=== PATIENT | male | born 1945 | race Caucasian/White ===

== ENCOUNTER 2017-10-01 10:20 | Emergency (ER) | payer MEDICAID ==
[2017-10-01 10:34] VITALS: TEMP 97.9
--- NOTE | 2017-10-01 11:06 | C.PDOC ---
History Of Present Illness 71 y/o male with history of Alzheimer and Dementia brought to ED by family s/p near syncope episode prior to arrival. As per family they were in high school social studies tutor office when patient became diaphoretic and shaky followed by near syncope episode but family member was able to catch him. Family states patient has had x4 similar episodes in the past month and has been seen by Neurologist prescribed medication but patient states he ran out. At ED patient is asymptomatic denies chest pain, head injury, loc, headache, palpitations or any other complaints at this time. Time Seen by Provider: 10/01/17 10:44 Chief Complaint (Nursing): Syncope History Per: Patient, Family History/Exam Limitations: no limitations Onset/Duration Of Symptoms: Hrs Current Symptoms Are (Timing): Still Present Past Medical History Reviewed: Historical Data, Nursing Documentation, Vital Signs Vital Signs: Last Vital Signs Temp 97.9 F 10/01/17 10:29 Pulse 87 10/01/17 12:21 Resp 18 10/01/17 12:21 BP 108/72 10/01/17 12:21 Pulse Ox 99 10/01/17 13:39 - Medical History PMH: Alzheimer's Disease Surgical History: No Surg Hx - [facility] Procedures EXCISION OF SMALL INTESTINE, ENDO, DIAGN (05/08/16) INSPECTION OF LOWER INTESTINAL TRACT, ENDO (05/08/16) Family History: States: No Known Family Hx - Social History Hx Alcohol Use: No (used to) Hx Substance Use: No Review Of Systems Constitutional: Negative for: Fever, Chills Eyes: Negative for: Vision Change Cardiovascular: Negative for: Chest Pain, Palpitations Respiratory: Negative for: Shortness of Breath Skin: Negative for: Rash Neurological: Negative for: Headache Physical Exam - Physical Exam Appears: Non-toxic, No Acute Distress Skin: Warm, Dry, No Rash Head: Atraumatic, Normacephalic Eye(s): bilateral: PERRL, EOMI, Other (Constricted pupils ) Oral Mucosa: Moist Neck: Normal ROM, Supple Cardiovascular: Rhythm Regular Respiratory: Normal Breath Sounds, No Rales, No Rhonchi, No Wheezing Gastrointestinal/Abdominal: Soft, No Tenderness, No Guarding, No Rebound Extremity: Normal ROM, Capillary Refill (<2 seconds) Neurological/Psych: Oriented x3, Normal Speech, Normal Cognition, Normal Cranial Nerves, Normal Motor, Normal Sensation, Other (tremor left index finger) ED Course And Treatment - Laboratory Results Result Diagrams: 10/01/17 11:33 10/01/17 11:33 Lab Interpretation: No Acute Changes ECG: Interpreted By Me ECG Rhythm: Sinus Rhythm, ST/T Changes, Nonspecific Changes ECG Interpretation: No Acute Changes O2 Sat by Pulse Oximetry: 99 (RA) Pulse Ox Interpretation: Normal - Radiology CXR: Viewed By Me, Read By Radiologist CXR Interpretation: Yes: No Acute Disease - CT Scan/US CT Head Other Rad Studies (CT/US): Read By Radiologist, Radiology Report Reviewed CT/US Interpretation: Accession No. : [id number]. Patient Name / ID : LEIF ARCE / [id number]. Exam Date : 10/01/2017 12:30:42 ( Approved ). Study Comment : Sex / Age : M / 71Y. Creator : Flower Aguilera. Dictator : Raj Bettencourt MD. Executive Vice President Of Sales : Watch Inspector Final Movement : Raj Bettencourt MD. Approver2 : Report Date : 10/01/2017 12:53:21. My Comment : . PROCEDURE: CT HEAD WITHOUT CONTRAST. HISTORY: AMS. COMPARISON: Unenhanced head CT . TECHNIQUE: Axial computed tomography images were obtained through the head/brain without intravenous contrast. Radiation dose: Total exam DLP = 926.34 mGy-cm. This CT exam was performed using one or more of the following dose reduction techniques: Automated exposure control, adjustment of the mA and/ or kV according to patient size, and/or use of iterative reconstruction technique. FINDINGS: HEMORRHAGE: No intracranial hemorrhage. BRAIN: Diffuse cerebral atrophy and microangiopathy appear reiterated throughout the cerebrum without significant interval change. No mass effect or cortical edema is identified. There is no definite intracranial hemorrhage for artifacts are appreciated into the femoral bones of the bilateral mid cerebellopontine angles , left greater than right. Posterior fossa contents are otherwise unremarkable. Midline brain and is grossly nonfocal. VENTRICLES: Unremarkable. No hydrocephalus. CALVARIUM: Unremarkable. PARANASAL SINUSES: Unremarkable as visualized. No significant inflammatory changes. MASTOID AIR CELLS: Unremarkable as visualized. No inflammatory changes. OTHER FINDINGS: None. IMPRESSION: Stable age-appropriate age related neuro degenerative brain findings without acute findings by standard CT criteria. Follow-up CT or MRI are available as clinically warranted. - Physician Consult Information Time Consulting Physician Contacted: 13:31 Outcome Of Conversation: Case discussed with Dr Chase Mcintyre in [place]. He has been taking care of this patient for the past month. He did refer him to a neurologist but he has not yet been seen. He should be on Donzepril 10mg daily for dementia. Will refill his meds and he will follow up in the office. Disposition Counseled Patient/Family Regarding: Studies Performed, Diagnosis, Need For Followup, Rx Given - Disposition Referrals: Braulio Bang MD [Staff Provider] - Disposition: HOME/ ROUTINE Disposition Time: 13:49 Condition: IMPROVED Prescriptions: Donepezil [Aricept] 10 mg PO DAILY #90 tab Instructions: Near Fainting Forms: [employer] ([employer]) Print Language: PORTUGUESE - Clinical Impression Clinical Impression: Near syncope, Alzheimer's dementia - Scribe Statement The provider has reviewed the documentation as recorded by the Jyotiibalexis Farr All medical record entries made by the Jyotiibalexis were at my direction and personally dictated by me. I have reviewed the chart and agree that the record accurately reflects my personal performance of the history, physical exam, medical decision making, and the department course for this patient. I have also personally directed, reviewed, and agree with the discharge instructions and disposition.
[2017-10-01 11:36] LABS: BASO % 0.5 % (0.0-2.0); EOS # 0.1 K/uL (0.0-0.7); HEMOGLOBIN 11.6 g/dL (12.0-18.0); LYMPH # 2.2 K/uL (1.0-4.3); LYMPH % 39.6 % (20.0-40.0); MEAN CELL VOLUME 78.5 fL (80.0-94.0); MEAN CORPUSCULAR HEMOGLOBIN 25.1 pg (27.0-31.0); MEAN PLATELET VOLUME 8.9 fL (7.2-11.7); MONO # 0.6 K/uL (0.0-0.8); MONO % 10.7 % (0.0-10.0); NEUT # 2.7 K/uL (1.8-7.0); NEUT % 48.2 % (50.0-75.0); NRBC % 0.1 % (0.0-2.0); RBC 4.6 Mil/uL (4.40-5.90); RED CELL DISTRIBUTION WIDTH 15.7 % (11.5-14.5); WHITE BLOOD COUNT 5.6 K/uL (4.8-10.8)
--- NOTE | 2017-10-01 11:41 | RAD ---
PROCEDURE: CHEST RADIOGRAPH, 1 VIEW HISTORY: AMS COMPARISON: Portable chest 05/29/2016. FINDINGS: LUNGS: Borderline airspace disease at the medial bilateral bases although patchy density at the medial right base is markedly improved if not resolved as compared to prior chest radiograph 05/29/2016. Clinically correlate further. PLEURA: No pneumothorax or pleural fluid seen. CARDIOVASCULAR: Normal. Prior right central venous catheter now removed. OSSEOUS STRUCTURES: No significant abnormalities. VISUALIZED UPPER ABDOMEN: Normal. OTHER FINDINGS: None. IMPRESSION: Borderline medial basilar airspace disease, left greater than right though this could be a function of some crowding of bronchovascular markings. Prior medial right basilar infiltrate is markedly improved if not resolved. Prior right central venous line now removed.
[2017-10-01 11:50] LABS: ALB/GLOB RATIO 1.1 (1.0-2.1); ALBUMIN 3.7 g/dL (3.5-5.0); ALT/SGPT 16 U/L (21-72); AST/SGOT 29 U/L (17-59); BLOOD UREA NITROGEN 13 mg/dL (9-20); CALCIUM 9.1 mg/dl (8.6-10.4); GFR AFRICAN-AMERICAN > 60; GFR NON-AFRICAN AMERICAN > 60
[2017-10-01 12:23] VITALS: BP 108/72; PULSE 87; RESP 18
--- NOTE | 2017-10-01 13:15 | CT ---
PROCEDURE: CT HEAD WITHOUT CONTRAST. HISTORY: AMS COMPARISON: Unenhanced head CT 05/08/2016. TECHNIQUE: Axial computed tomography images were obtained through the head/brain without intravenous contrast. Radiation dose: Total exam DLP = 926.34 mGy-cm. This CT exam was performed using one or more of the following dose reduction techniques: Automated exposure control, adjustment of the mA and/or kV according to patient size, and/or use of iterative reconstruction technique. FINDINGS: HEMORRHAGE: No intracranial hemorrhage. BRAIN: Diffuse cerebral atrophy and microangiopathy appear reiterated throughout the cerebrum without significant interval change. No mass effect or cortical edema is identified. There is no definite intracranial hemorrhage for artifacts are appreciated into the femoral bones of the bilateral mid cerebellopontine angles, left greater than right. Posterior fossa contents are otherwise unremarkable. Midline brain and is grossly nonfocal. VENTRICLES: Unremarkable. No hydrocephalus. CALVARIUM: Unremarkable. PARANASAL SINUSES: Unremarkable as visualized. No significant inflammatory changes. MASTOID AIR CELLS: Unremarkable as visualized. No inflammatory changes. OTHER FINDINGS: None. IMPRESSION: Stable age-appropriate age related neuro degenerative brain findings without acute findings by standard CT criteria. Follow-up CT or MRI are available as clinically warranted.
[2017-10-01 13:31] VITALS: O2SAT 99
[2017-10-01 13:42] LABS: SQUAMOUS EPITHIAL < 1 /hpf (0-5); URINE BILIRUBIN NEGATIVE (NEGATIVE); URINE BLOOD NEGATIVE (NEGATIVE); URINE CLARITY Clear (Clear); URINE COLOR Yellow (YELLOW); URINE GLUCOSE (UA) NORMAL (Normal); URINE LEUKOCYTE ESTERASE NEG Leu/uL (Negative); URINE PROTEIN NEGATIVE (NEGATIVE); URINE UROBILINOGEN NORMAL mg/dL (0.2-1.0)
--- NOTE | 2017-10-02 23:53 | CARD ---
APPROVED REPORT EKG Measurement Heart [id number] <Conclusion> Normal sinus rhythm Nonspecific ST and T wave abnormality Abnormal ECG
== END 2017-10-01 12:24 | disposition home or self-care (01) ==
LOC: C.ER 10:20
DX: R55 Syncope and collapse (principal); F02.80 Dementia in other diseases classified elsewhere, unspecified severity, without behavioral disturbance, psychotic disturbance, mood disturbance, and anxiety; G30.9 Alzheimer's disease, unspecified